=== PATIENT | female | born 1975 | race Caucasian/White ===

== ENCOUNTER 2020-12-07 18:29 | Emergency (ER) | payer BC ==
[~2020-12-07] VITALS: Ht 162.6 cm; Wt 84.5 kg
[2020-12-07 18:37] VITALS: TEMP 98.3
[2020-12-07 19:31] LABS: HEMATOCRIT 45.7 % (37.0-47.0); HEMOGLOBIN 15.9 g/dl (12.5-16.0); MEAN CELL VOLUME 88 fl (80.0-100.0); MEAN CORPUSCULAR HEMOGLOBIN 31 pg (27.0-31.0); MEAN CORPUSCULAR HGB CONC 35 g/dl (33.0-37.0); MEAN PLATELET VOLUME 10.6 fl (7.4-10.4); PLATELET COUNT 473 K/mm3 (130-400); RED BLOOD COUNT 5.21 M/mm3 (4.10-5.30)
[2020-12-07 19:42] LABS: ALBUMIN 2.1 gm/dL (3.5-5.0); BILIRUBIN,TOTAL 1.1 mg/dL (0.2-1.2); C-REACTIVE PROTEIN 18.12 mg/dL (0.00-0.50); CALCIUM 8.7 mg/dL (8.4-10.2); CREATININE, serum 0.71 mg/dL (0.57-1.11); POTASSIUM 3.6 mmol/L (3.5-4.5); TOTAL PROTEIN 6.7 gm/dL (6.2-8.1)
[2020-12-07 19:46] LABS: BAND 1 % (0-10); EOSINOPHIL 2 % (0-4); LYMPHOCYTE 13 % (20.0-51.0); MYELOCYTE 1 % (0-0); NEUTROPHILS 77 % (42.0-75.2)
[2020-12-07 19:47] LABS: ANISOCYTOSIS 1+; PLATELET ESTIMATE INCREASED (NORMAL)
[2020-12-07 19:55] LABS: ERYTHROCYTE SEDIMENTATION RATE 46 mm/hr (0-20)
[2020-12-07 23:04] VITALS: BP 144/86; PULSE 82
== END 2020-12-07 23:30 | disposition home or self-care (01) ==
LOC: COL.ER 18:29
PROVIDERS: Family Medicine
DX: M06.4 Inflammatory polyarthropathy (principal); Z87.891 Personal history of nicotine dependence
CPT/HCPCS: J1100; J1170; J2405; Q9967